=== PATIENT | male | born 1975 | race Caucasian/White ===

== ENCOUNTER 2017-12-03 17:39 | Emergency (ER) | payer MEDICARE, MEDICAID ==
[~2017-12-03] VITALS: Ht 180.3 cm; Wt 109.1 kg
[2017-12-03 18:02] VITALS: Ht 180.3 cm; Wt 109.1 kg
[2017-12-03] MEDS ORDERED: LISINOPRIL2.5 MG (18:04)
[2017-12-03] MEDS ORDERED: CO Q-1030 MG (18:04)
[2017-12-03] MEDS ORDERED: XANAX1 MG PO (18:04)
[2017-12-03] MEDS ORDERED: CALCIUM 500 +1 EAC3 PO (18:04)
[2017-12-03] MEDS ORDERED: FENOGLIDE40 MG PO (18:04)
[2017-12-03] MEDS ORDERED: HYDROCODON-ACE1 EAC7 PO (18:05)
[2017-12-03 18:51] LABS: BASOPHILS 0.1 % (0-2); EOSINOPHILS 0.5 % (0-7); HEMATOCRIT 45.7 % (42.0-54.0); HEMOGLOBIN 16.6 g/dL (13.5-17.5); IMMATURE GRANULOCYTES 0.5 % (0-5); LYMPHOCYTES 7.4 % (15-50); MCH 37.5 pg (26.0-34.0); MCHC 36.3 g/dL (31.0-37.0); MCV 103.2 fL (80.0-100.0); MEAN PLATELET VOLUME 9.9 fL (7.4-10.4); MONOCYTES 6.3 % (2-11); NEUTROPHILS 85.2 % (40-80); PLATELET COUNT 246 10x3/uL (130-400); RBC 4.43 10x6/uL (4.20-6.10); RDW 13.8 % (11.5-14.5); WBC 14.8 10x3/uL (4.8-10.8)
[2017-12-03 19:09] LABS: APPEARANCE CLEAR (CLEAR); BILIRUBIN NEGATIVE (NEGATIVE); COLOR YELLOW (YELLOW); GLUCOSE NEGATIVE (NEGATIVE); KETONE NEGATIVE (NEGATIVE); NITRITE NEGATIVE (NEGATIVE); PROTEIN NEGATIVE (NEGATIVE); UROBILINOGEN NORMAL (NORMAL)
[2017-12-03 19:11] LABS: BACTERIA FEW /hpf (NONE SEEN); RED CELLS - URINE 0-5 /hpf (0-5)
[2017-12-03 19:14] LABS: UDS - AMPHET NEGATIVE QUAL (NEGATIVE); UDS - BARB NEGATIVE QUAL (NEGATIVE); UDS - BENZO POSITIVE QUAL (NEGATIVE); UDS - COCAINE NEGATIVE QUAL (NEGATIVE); UDS - OPIATE POSITIVE QUAL (NEGATIVE); UDS - PCP NEGATIVE QUAL (NEGATIVE); UDS - THC NEGATIVE QUAL (NEGATIVE)
[2017-12-03 20:32] LABS: CREATINE KINASE 96 UL (21-232); TROPONIN-I < 0.017 ng/mL (0.000-0.060)
[2017-12-03 20:38] LABS: CREATININE - SERUM 1.1 mg/dL (0.6-1.3); GLUCOSE 103 mg/dL (74-106); UREA NITROGEN 6 mg/dL (7-18); eGFR NON AFRICAN AMERICAN 78 mL/min (90-120)
[2017-12-03 20:39] LABS: CALC OSMOLALITY 260 mosm/kg (275-300); CALCIUM 8.5 mg/dL (8.5-10.1); CARBON DIOXIDE 24.8 mmol/L (21.0-32.0); CHLORIDE - SERUM 97 mmol/L (98-107); POTASSIUM - SERUM 4.4 mmol/L (3.5-5.1); SODIUM 131 mmol/L (136-145)
[2017-12-03 20:40] LABS: ALBUMIN 3.4 g/dL (3.4-5.0); ALKALINE PHOSPHATASE 58 U/L (46-116); ALT (SGPT) 21 U/L (10-68); BILIRUBIN - TOTAL 1.11 mg/dL (0.2-1.3); PROTEIN - SERUM 6.7 g/dL (6.4-8.2)
[2017-12-03] MEDS ORDERED: VIBRAMYCIN50 MG/5 ML PO (21:08)
[2017-12-03 22:45] VITALS: BP 98/53
== END 2017-12-03 22:41 | disposition left against medical advice (07) ==
LOC: D.ER 17:39
PROVIDERS: Family Medicine
DX: R10.9 Unspecified abdominal pain (principal); F17.200 Nicotine dependence, unspecified, uncomplicated